=== PATIENT | female | born 1965 | race Caucasian/White ===

== ENCOUNTER → 2022-03-01 | Outpatient (CLI) | payer MEDICARE ==
[~2022-03-01] MED LIST: AIMOVIG AU70 MG/1 ML SQ; BENADRYL ALLERG25 MG PO; BIOTIN1 M1 PO; CALCIUM CITRAT1 EAC4 PO; ESTRADIOL0.5 MG PO; FISH OIL + D31 EACH PO; FUROSEMIDE40 MG PO; GABAPENTIN600 MG PO; IMITREX100 MG PO; LINZESS72 MCG PO; LUTEIN20 M1 PO; PROAMATINE 2.52.5 MG PO; PROMETHAZINE HC25 M1 PO; PROTONIX40 MG PO; PULMICORT FLEX90 MCG INH; RESTASIS 0.05%1 EACH OD; SIMVASTATIN20 MG PO; SINGULAIR10 MG PO; TIZANIDINE HCL4 MG PO; VALIUM 5 MG TAB5 MG PO; VITAMIN B12-FO1 EACH PO; VRAYLAR1.5 MG PO; ZOLOFT100 MG PO
== END ==
LOC: SLEEP-COR 01-16 09:11 → SLEEP 14:26
DX: G47.33 Obstructive sleep apnea (adult) (pediatric) (principal)
CPT/HCPCS: 95810